=== PATIENT | female | born 2000 | race Caucasian/White ===

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

== ENCOUNTER 2022-03-21 22:03 | Inpatient (IN) | payer OTHER, SELFPAY ==
[2022-03-21 22:05] VITALS: BP 132/83; PULSE 65; RESP 16; TEMP 36.2; O2SAT 98; BMI 25.9
--- NOTE | 2022-03-21 22:41 | CT_ITS ---
INDICATION: throat pain -- right peritonsillar abscess? EXAMINATION: CT NECK WITH CONTRAST - CT Soft Tissue Neck W/ Contrast Injection TECHNIQUE: Helically acquired images were obtained of the neck following IV contrast. A radiation dose optimization technique was used for this scan. IV Contrast dosage and agent: 75 cc [id number] COMPARISON: None. FINDINGS: NASOPHARYNX: Unremarkable. SUPRAHYOID NECK: Enlargement of the right palatine tonsil with peripherally enhancing low-attenuation collection lateral to the tonsil measuring 3.1 x 2.9 x 2.9 cm. INFRAHYOID NECK: Unremarkable larynx, hypopharynx, and supraglottis. THYROID: No focal lesions. SALIVARY GLANDS: Unremarkable. LYMPH NODES: Shotty right-sided submandibular, anterior and posterior cervical lymph nodes. VASCULAR STRUCTURES: Unremarkable. VISUALIZED PORTIONS OF THE ORBITS, PARANASAL SINUSES, MASTOID AIR CELLS AND SKULL BASE: Unremarkable. BONES: Unremarkable. THORACIC INLET: Clear lung apices. CT/Soft Tissue Neck WITH Contrast IMPRESSION: Right peritonsillar abscess measuring up to 3.1 cm. Electronically Signed: Greg Magana MD at 0:26 EST ,
--- NOTE | 2022-03-21 22:55 | EDS_ITS ---
HPI History of Present Illness Chief Complaint: Sore Throat Informant: patient and parent Narrative Narrative: Presents here with mother for evaluation worsening throat symptoms. Mother talking due to patient discomfort with talking. A week ago developed slight sore throat symptoms. Was seen at urgent care 5 days ago clinically treated for strep was put on amoxicillin and 5-day course of steroids symptoms persisted was seen the following day had a monotest that was positive taken off antibiotics. Over the last 2 days symptoms have worsened. There is been no fevers. No history of strep. Previous no history of mono. Denies abdominal pain. Due to worsening symptoms not relieved with Tylenol ibuprofen was brought here. Patient has seen ENT Dr. Milligan in the past for nasal trauma with repair 10 years ago. Prior similar symptoms: No PFSH PFSH Medical History Anxiety Back pain Depression Hay fever Knee pain Migraines unusual tiredness Home Medications multivitamin 1 cap PO DAILY 02/23/19 [History Last Taken Unknown] escitalopram oxalate 10 mg tablet (Lexapro) 10 mg PO DAILY 03/21/22 [History Last Taken Unknown] levonorgestrel 17.5 mcg/24 hrs (5yrs) 19.5mg intrauterine device (Kyleena) 17.5 mcg intrauterine 03/22/22 [History Last Taken Unknown] Allergy/AdvReac Type Severity Reaction Status Date / Time amoxicillin trihydrate Allergy Hives Verified 03/21/22 22:04 [From Augmentin] latex Allergy Rash Verified 03/21/22 22:04 lidocaine Allergy Rash Verified 03/21/22 22:05 potassium clavulanate Allergy Hives Verified 03/21/22 22:04 [From Augmentin] Sulfa (Sulfonamide Allergy Unknown Verified 03/21/22 22:04 Antibiotics) Family History Other Afib CVA (cerebral vascular accident) Cancer Surgical History History of ankle surgery History of nasal surgery Social History Smoking Status: Never smoker alcohol intake: never ROS ROS ED Constitutional Constitutional ED: Denies chills, fever(s) or sweats Eyes Eyes: Denies change in vision ENT ENT ED: Reports dysphagia and sore throat Cardiovascular Cardiovascular: Denies chest pain, leg edema, palpitations or racing heartbeat Respiratory/Chest Respiratory/Chest: Denies cough, dyspnea or dyspnea on exertion Gastrointestinal Gastrointestinal: Denies abdominal pain, diarrhea, nausea or vomiting Genitourinary Genitourinary ED: Denies dysuria, hematuria or urinary frequency Musculoskeletal Musculoskeletal: Denies back pain, extremity pain or neck pain Integumentary Denies rash or wounds Neurologic Neurologic: Denies headache(s), paresthesias or weakness EXAM Physical Exam Const Vital Signs: 03/21/22 22:05 Temperature 97.1 F L Temperature Source Temporal Pulse Rate 65 Respiratory Rate 16 Blood Pressure 132/83 H Blood Pressure Mean 99 Pulse Ox 98 Oxygen Delivery Method Room Air Positive well nourished and well developed Constitutional Narrative: Patient with low voice while trying to speak due to discomfort. General Appearance ED: well developed HEENT HEENT Narrative: Posterior pharyngeal erythema there is increasing fullness right peritonsillar with exudates. Uvula slightly deviated to the left. Pain with jaw opening. No submental edema. No sublingual edema. normocephalic and atraumatic Eyes PERRL, EOMs intact bilaterally and conjunctivae normal General Eye ED: Yes normal appearance of both eyes Neck supple Neck Narrative: Right cervical lymphadenopathy. Skin General: Negative for tenderness Chest Wall Chest: Negative for tenderness Resp normal respiratory effort and normal air movement Effort and Inspection: symmetric chest movement; Negative for respiratory distress Cardio regular rate, regular rhythm and no murmurs Peripheral Pulses: pulses 2+ throughout GI normal to inspection, nondistended, normoactive bowel sounds and non-tender Palpation: Negative for guarding or rebound tenderness present Back/Spine no CVA tenderness and no thoracic nor lumbar tenderness Extremity normal to inspection General Extremety ED: Negative for edema or tenderness General Extremity: Negative for edema Neuro oriented x3 and no sensory deficits noted Sensorium / Orientation: awake and alert Skin no rashes or lesions noted and no wounds MDM MDM MDM Narrative Medical decision making narrative: Patient clinically with right peritonsillar abscess. Rapid strep obtained inconclusive with culture pending. She was covered with clindamycin additional dexamethasone along with IV morphine for symptom control. Labs White count returned at 12. Potassium at 3.1. Soft tissue CT neck per radiology a right peritonsillar abscess measuring 3.1 cm. She required additional morphine for pain control. I spoke with her ENT physician Dr. Viktor Milligan, will admit for symptom control and IV antibiotics he will take to the OR tomorrow. She will be kept NPO. Normal saline at 100 mL/h started. Patient and mother updated. Spoke with hospitalist, Dr. Mason for admission. Lab Data Attestation: I reviewed the patient's lab results. Labs: Laboratory Results - last 24 hr 03/21/22 03/21/22 03/21/22 22:41 23:20 23:20 WBC 12.0 H RBC 4.53 Hgb 13.6 Hct 41.6 MCV 91.8 MCH 30.0 MCHC 32.7 RDW Std Deviation 40.9 RDW Coeff of Miley 12.2 Plt Count 300 MPV 8.9 Immature Gran % (Auto) 1.200 H Neut % (Auto) 51.4 Lymph % (Auto) 36.8 [place] % (Auto) 9.5 Eos % (Auto) 0.4 Baso % (Auto) 0.7 Absolute Neuts (auto) 6.2 Absolute Lymphs (auto) 4.42 Nucleated RBC % 0 Atypical Lymphocytes 1+ PT 14.3 INR 1.1 APTT 28.9 Sodium Potassium Chloride Carbon Dioxide Anion Gap BUN Creatinine Estim Creat Clear Calc Est GFR (MDRD) Af Amer Est GFR (MDRD) Non-Af BUN/Creatinine Ratio Glucose Calcium Urine Test Negative 03/21/22 23:20 WBC RBC Hgb Hct MCV MCH MCHC RDW Std Deviation RDW Coeff of Miley Plt Count MPV Immature Gran % (Auto) Neut % (Auto) Lymph % (Auto) [place] % (Auto) Eos % (Auto) Baso % (Auto) Absolute Neuts (auto) Absolute Lymphs (auto) Nucleated RBC % Atypical Lymphocytes PT INR APTT Sodium 140 Potassium 3.1 L Chloride 104 Carbon Dioxide 31.0 Anion Gap 5 BUN 7 Creatinine 0.82 Estim Creat Clear Calc 111.32 Est GFR (MDRD) Af Amer 115 Est GFR (MDRD) Non-Af 95 BUN/Creatinine Ratio 8.6 L Glucose 105 Calcium 9.6 Urine Test Radiography Diagnostic Testing: Clinical Impression(s) from Imaging Studies Soft Tissue Neck CT 03/21/22 22:41 IMPRESSION: Right peritonsillar abscess measuring up to 3.1 cm. Electronically Signed: Greg Magana MD at 0:26 EST , Discharge Plan Dx/Rx/DC Orders Clinical Impression: Peritonsillar abscess, Throat pain, Leukocytosis Disposition Disposition: Acute Care Hospital [facility] Discharge Date/Time: 03/22/22 01:32
[2022-03-21 22:59] LABS: Internal QC Validated? YES +Cl - CLEAR BKGD; Pregnancy, Urine Negative Negative
[2022-03-21] MEDS: Morphine 2 MG/ML Syringe IV (23:14)
[2022-03-21] MEDS: dexAMETHasone 10 MG/ML Vial IV (23:14)
[2022-03-21 23:39] LABS: International Normalized Ratio 1.1; Prothrombin Time (Protime)PT. 14.3 SECONDS (11.7-14.9)
[2022-03-21 23:40] LABS: Partial Thromboplast Time 28.9 Seconds (24.1-36.2)
[2022-03-21 23:41] LABS: Absolute Lymphocyte Count 4.42 X10^3/uL (0.83-4.51); Absolute Neutrophil Count 6.2 X10^3/uL (2.0-7.7); Basophil# 0.08 X10^3/uL; Basophil% 0.7 % (0-1); Eosinophil# 0.05 X10^3/uL; Eosinophils% 0.4 % (0-5); Hematocrit 41.6 % (37-47); Hemoglobin 13.6 g/dL (12.0-15.0); Lymphocyte # 4.42 X10^3/ul (0.83-4.51); Lymphocyte % 36.8 % (19-41); Mean Corp Hgb Conc 32.7 g/dL (32-36); Mean Corpuscular Volume 91.8 fL (81-99); Mean Platelet Vol. 8.9 fl (6.2-12.0); Monocyte# 1.14 X10^3/uL; Monocyte% 9.5 % (0-10); NRBC Flagged by Analyzer 0 % (0-5); Neutrophil # 6.18 X10^3/uL (2.7-7.7); Neutrophil % 51.4 % (47-70); POSITIVE MORPHOLOGY YES; Platelet Count 300 K/mm3 (150-450); RBC Distribution Width CV 12.2 % (11.6-14.6); RBC Distribution Width SD 40.9 fl (35.1-43.9); Red Blood Count 4.53 M/mm3 (4.2-5.4)
[2022-03-21 23:44] LABS: Differential Indicated SCAN CRITERIA MET
[2022-03-21 23:47] LABS: Anion Gap 5 (5-15); BUN 7 mg/dL (7-18); BUN/Creat Ratio 8.6 RATIO (10-20); Calcium,Total 9.6 mg/dL (8.5-10.1); Chloride 104 mmol/L (98-107); Creatinine, Serum 0.82 mg/dL (0.55-1.02); EST Glomerular Filtration Rate 95 mL/min (>60); Est Glom Filt Rate - Afr Amer 115 mL/min (>60); Estimated Creatinine Clearance 111.32 ml/min; Glucose 105 mg/dL (74-106); Potassium 3.1 mmol/L (3.5-5.1); Sodium Level 140 mmol/L (136-145)
[2022-03-22] VITALS (14 sets, daily range): BP systolic 96–128; BP diastolic 59–89; PULSE 55–91; RESP 15–18; TEMP 36.4–37.1; O2SAT 95–100; BMI 25.7
[2022-03-22 00:02] LABS: Atypical Lymphocyte 1+ %
[2022-03-22] MEDS: Clindamycin 600 MG/50 ML BAG 100 MG IV ×4 (00:05→18:35)
[2022-03-22] MEDS: Morphine 4 MG/ML Syringe IV (00:41)
[2022-03-22] MEDS: 0.9% Normal Saline 1,000 ML 100 ML IV (00:58)
--- NOTE | 2022-03-22 01:08 | PCM.HP.STD ---
HPI - General General Date of Admission: 03/22/22 Date of Service: 03/22/22 Chief Complaint: sore throat HPI Narrative RAH MANZANARES, is a 21 F with a significant history of depression/anxiety who presents emergency department with 1 week history of progressively worsening sore throats. Patient went to the urgent care about 5 days prior to presentation and was given amoxicillin and steroids. About 3 days prior to presentation she went back to the urgent care and because mononucleosis test came back to be positive antibiotics were stopped. Because of pain she is unable to talk or swallow. CT scan showed a peritonsillar abscess. Emergency department discussed the case with ENT who recommended outpatient drainage. However because patient wanted to be out before such a procedure is done the plan is to make patient stay at hospital for drainage under anesthesia. [facility] Medical History Anxiety Back pain Depression Hay fever Knee pain Migraines unusual tiredness Home Medications multivitamin 1 cap PO DAILY 02/23/19 [History Last Taken Unknown] escitalopram oxalate 10 mg tablet (Lexapro) 10 mg PO DAILY 03/21/22 [History Last Taken Unknown] levonorgestrel 17.5 mcg/24 hrs (5yrs) 19.5mg intrauterine device (Kyleena) 17.5 mcg intrauterine 03/22/22 [History Last Taken Unknown] Allergy/AdvReac Type Severity Reaction Status Date / Time amoxicillin trihydrate Allergy Hives Verified 03/21/22 22:04 [From Augmentin] latex Allergy Rash Verified 03/21/22 22:04 lidocaine Allergy Rash Verified 03/21/22 22:05 potassium clavulanate Allergy Hives Verified 03/21/22 22:04 [From Augmentin] Sulfa (Sulfonamide Allergy Unknown Verified 03/21/22 22:04 Antibiotics) Family History Other Afib CVA (cerebral vascular accident) Cancer Surgical History History of ankle surgery History of nasal surgery Social History Smoking Status: Never smoker alcohol intake: never ROS ROS Narrative Pertinent positives and pertinent negatives as noted in HPI. All other systems were reviewed and are negative Vital Signs Vital Signs Vital Signs: 03/21/22 22:05 Temperature 97.1 F L Temperature Source Temporal Pulse Rate 65 Respiratory Rate 16 Blood Pressure 132/83 H Blood Pressure Mean 99 Pulse Ox 98 Oxygen Delivery Method Room Air Weight Weight: 77.564 kg Body Mass Index (BMI) 25.9 Physical Exam Narrative Physical exam: General: Well-nourished, well-developed. Head: Normocephalic, atraumatic, no tenderness Eyes: Vision is grossly intact. EOMI ENT: Unable to fully open her mouth secondary to pain. Swelling at uvula area. Neck: Nontender, full range of motion, no spinal tenderness, deformities, step-off CVS: Regular rate and rhythm. S1-S2 present. No murmur, gallop or rub. Respiratory : clear to auscultation bilaterally, chest wall nontender, no wheezing Abdomen: Soft, nontender, nondistended, normal bowel sounds, no masses : Deferred Back: Nontender, no CVA tenderness, no midline spinal tenderness, deformities, step-offs Extremities: Nontender full range of motion, no trauma Skin: Normal color, no trauma, abrasions Neuro: Alert, oriented, cranial nerves II through XII grossly intact. Psychiatry: Normal mood. Normal affect. Not depressed. Not anxious. Results Lab / Micro Data Result Diagrams: 03/21/22 23:20 03/21/22 23:20 Labs: Laboratory Results - last 24 hr 03/21/22 22:41: Urine Test Negative 03/21/22 23:20: WBC 12.0 H, RBC 4.53, Hgb 13.6, Hct 41.6, MCV 91.8, MCH 30.0, MCHC 32.7, RDW Std Deviation 40.9, RDW Coeff of Miley 12.2, Plt Count 300, MPV 8.9, Immature Gran % (Auto) 1.200 H, Neut % (Auto) 51.4, Lymph % (Auto) 36.8, [place] % (Auto) 9.5, Eos % (Auto) 0.4, Baso % (Auto) 0.7, Absolute Neuts (auto) 6.2, Absolute Lymphs (auto) 4.42, Nucleated RBC % 0, Atypical Lymphocytes 1+ 03/21/22 23:20: PT 14.3, INR 1.1, APTT 28.9 03/21/22 23:20: Sodium 140, Potassium 3.1 L, Chloride 104, Carbon Dioxide 31.0, Anion Gap 5, BUN 7, Creatinine 0.82, Estim Creat Clear Calc 111.32, Est GFR (MDRD) Af Amer 115, Est GFR (MDRD) Non-Af 95, BUN/Creatinine Ratio 8.6 L, Glucose 105, Calcium 9.6 Micro: Microbiology 03/21/22 23:20 Interface Orders Group A Streptococcus Rapid Screen - Preliminary Radiology Impression Soft Tissue Neck CT 03/21/22 22:41 IMPRESSION: Right peritonsillar abscess measuring up to 3.1 cm. Electronically Signed: Greg Magana MD at 0:26 EST , Assessment & Plan Assessment/Plan (1) Peritonsillar abscess: PLAN: Plan Peritonsillar abscess Soft tissue neck CT was visualized and independently interpreted. I agree with radiologist interpretation of peritonsillar abscess. Per radiologist abscess measures up to 3.1 cm. White count of 12.0 (patient recently has been on steroids; so steroids could be contributing); bandemia of 1.2%. Rapid strep A screen inconclusive. Confirmatory culture is pending. Clindamycin IV ordered emergency department and continued Steroids IV ordered We will keep patient n.p.o. Received morphine IV at emergency department. Patient had no relief from it. Dilaudid was offered but reportedly patient has nausea with Dilaudid. Per family request Toradol as needed ordered. ENT consult for possible drainage. Hypokalemia Potassium level of 3.1 on presentation. IV fluids with potassium Trend BMP. DVT prophylaxis Low risk. Encourage to ambulate. Charges/Coding Visit Charges Inpatient E&M: 93617 Init Hosp L3
--- NOTE | 2022-03-22 02:17 | NURSING ---
Pt C/O mouth/throat pain 11/29, states morphine has not helped. Cortext to Dr Mason regarding same & new order received.
[2022-03-22] MEDS: KCL 40mEq in 0.9% NS 40 MEQ/1,000 ML IV.SOLN 100 MEQ IV ×3 (02:26→22:26)
[2022-03-22] MEDS: Ketorolac 15 MG/ML Vial IV ×2 (03:14→10:23)
[2022-03-22 04:56] LABS: Absolute Lymphocyte Count 2.02 X10^3/uL (0.83-4.51); Absolute Neutrophil Count 9.2 X10^3/uL (2.0-7.7); Basophil# 0.03 X10^3/uL; Basophil% 0.3 % (0-1); Hematocrit 39.3 % (37-47); Hemoglobin 12.9 g/dL (12.0-15.0); Lymphocyte # 2.02 X10^3/ul (0.83-4.51); Lymphocyte % 17.1 % (19-41); Mean Corp Hgb Conc 32.8 g/dL (32-36); Mean Corpuscular Volume 91.4 fL (81-99); Mean Platelet Vol. 8.9 fl (6.2-12.0); Monocyte# 0.45 X10^3/uL; Monocyte% 3.8 % (0-10); NRBC Flagged by Analyzer 0 % (0-5); Neutrophil # 9.23 X10^3/uL (2.7-7.7); Neutrophil % 78.4 % (47-70); Platelet Count 294 K/mm3 (150-450); RBC Distribution Width CV 12.3 % (11.6-14.6); RBC Distribution Width SD 41.2 fl (35.1-43.9); White Blood Count 11.8 K/mm3 (4.4-11.0)
[2022-03-22] MEDS: dexAMETHasone 4 MG/ML Vial IV ×3 (05:07→22:22)
[2022-03-22 05:20] LABS: Anion Gap 6 (5-15); BUN 7 mg/dL (7-18); BUN/Creat Ratio 10.3 RATIO (10-20); Calcium,Total 8.3 mg/dL (8.5-10.1); Chloride 105 mmol/L (98-107); Creatinine, Serum 0.68 mg/dL (0.55-1.02); EST Glomerular Filtration Rate 117 mL/min (>60); Est Glom Filt Rate - Afr Amer 142 mL/min (>60); Estimated Creatinine Clearance 134.23 ml/min; Glucose 158 mg/dL (74-106); Potassium 4.3 mmol/L (3.5-5.1); Sodium Level 137 mmol/L (136-145)
[2022-03-22] MEDS: Ondansetron 4 MG/2 ML Vial IV ×2 (05:55→15:01)
[2022-03-22] MEDS: HYDROmorphone 0.5 MG/0.5 ML SYRINGE IV ×4 (05:55→15:01)
--- NOTE | 2022-03-22 08:01 | PCM.PN.BLA ---
Progress Note [facility] Medical Records Department [address] [place] [address] H&P Exam - Hospitalist Acct: [id number] Name: RAH MANZANARES Rep #: [id number] :? 2000 21 HPI - General General Date of Admission: 03/22/22 Date of Service: 03/22/22 Chief Complaint: sore throat HPI Narrative RAH MANZANARES, is a 21 F with 1 week history of progressively worsening sore throat.? Patient went to the urgent care about 5 days prior to presentation and was given amoxicillin and steroids.? About 3 days prior to presentation she went back to the urgent care and because mononucleosis? test came back to be positive? antibiotics were stopped. Because of pain she is unable to talk or swallow. CT scan showed a peritonsillar abscess.? Emergency department discussed the case with ENT who recommended outpatient drainage.? However the paitent requested general anesthesia and she was admitted. ? [facility] Medical History? Anxiety Back pain Depression Hay fever Knee pain Migraines unusual tiredness Home Medications multivitamin 1 cap PO DAILY 02/23/19 [History Last Taken Unknown] escitalopram oxalate 10 mg tablet (Lexapro) 10 mg PO DAILY 03/21/22 [History Last Taken Unknown] levonorgestrel 17.5 mcg/24 hrs (5yrs) 19.5mg intrauterine device (Kyleena) 17.5 mcg intrauterine 03/22/22 [History Last Taken Unknown] Allergy/AdvReac Type Severity Reaction Status Date / Time amoxicillin trihydrate Allergy ? Hives Verified 03/21/22 22:04 [From Augmentin] ? latex Allergy ? Rash Verified 03/21/22 22:04 lidocaine Allergy ? Rash Verified 03/21/22 22:05 potassium clavulanate Allergy ? Hives Verified 03/21/22 22:04 [From Augmentin] ? Sulfa (Sulfonamide Allergy ? Unknown Verified 03/21/22 22:04 Antibiotics) ? Family History? Other Afib CVA (cerebral vascular accident) Cancer Surgical History? History of ankle surgery History of nasal surgery Social History? Smoking Status:? Never smoker alcohol intake:? never ROS Negative PE: The patient is awake alert in no acute distress. There is no stridor or stertor. Mouth and oropharynx reveals 2 and half centimeter trismus. She has uvular deviation to the left. There is obvious fullness and fluctuation in the right peritonsillar area. Neck is supple no adenopathy. CT scan of the neck reveals a 3.1 cm right peritonsillar abscess Assessment right peritonsillar abscess acute tonsillitis Plan: She will continue her n.p.o. status and IV fluids and IV antibiotics. We will take her to the operating room today for incision and drainage of right peritonsillar abscess. All risk benefits alternatives were discussed with the patient, she agreed to the procedure and wishes to proceed.
[2022-03-22] MEDS: Escitalopram Oxalate 10 MG Tablet PO (10:35)
--- NOTE | 2022-03-22 11:05 | CASEMGMT ---
DICK SERRANO Assessment: Face to Face with pt for initial transition planning/care coordination assessment. RN MAGGIE introduced self and role at [facility], pt voices understanding and consents to assessment. Pt is A/O x4 and answers all questions appropriately at this time. Pt lying in bed with parents at bedside. Care providers, pharmacy, and demographics verified/updated. 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 Pt home is a two story house with 1 step to enter. Pt reports she is I in ADL's and denies concerns at home. Transportation: Pt drives self and denies concerns with transportation. DME/HHC/SNF: Pt denies having any DME in the home, previous HHC or SNF stays. Pt states no concerns with going home at time of dc. Pt states no further concerns/needs. CM to follow. Advised pt to ask CM if any further question/concerns/needs arise, voices understanding. Pt Goal: Home Plan: Home
--- NOTE | 2022-03-22 14:18 | PCM.PN.HOSP ---
Subjective Subjective Patient was seen and examined today, her mother was in the room at the time of my examination. She is due to go down for surgery by ENT today for her peritonsillar abscess. Objective Data Objective Data Vital Signs: Vital Signs Temp Pulse Resp BP Pulse Ox O2 Del Method 97.8 F 60 18 97/60 99 Room Air 03/22/22 13:58 03/22/22 13:58 03/22/22 13:58 03/22/22 13:58 03/22/22 13:58 03/22/22 13:58 Oxygen Delivery Method Room Air Weight: 76.8 kg Body Mass Index (BMI) 25.7 Intake & Output: Intake and Output for Last 24 Hours 03/20/22 03/21/22 03/22/22 23:59 23:59 23:59 Intake Total Balance Lab / Micro Data Result Diagrams: 03/22/22 04:20 03/22/22 04:20 Labs: Laboratory Results - last 24 hr 03/21/22 22:41: Urine Test Negative 03/21/22 23:20: WBC 12.0 H, RBC 4.53, Hgb 13.6, Hct 41.6, MCV 91.8, MCH 30.0, MCHC 32.7, RDW Std Deviation 40.9, RDW Coeff of Miley 12.2, Plt Count 300, MPV 8.9, Immature Gran % (Auto) 1.200 H, Neut % (Auto) 51.4, Lymph % (Auto) 36.8, Gray % (Auto) 9.5, Eos % (Auto) 0.4, Baso % (Auto) 0.7, Absolute Neuts (auto) 6.2, Absolute Lymphs (auto) 4.42, Nucleated RBC % 0, Atypical Lymphocytes 1+ 03/21/22 23:20: PT 14.3, INR 1.1, APTT 28.9 03/21/22 23:20: Sodium 140, Potassium 3.1 L, Chloride 104, Carbon Dioxide 31.0, Anion Gap 5, BUN 7, Creatinine 0.82, Estim Creat Clear Calc 111.32, Est GFR (MDRD) Af Amer 115, Est GFR (MDRD) Non-Af 95, BUN/Creatinine Ratio 8.6 L, Glucose 105, Calcium 9.6 03/22/22 04:20: WBC 11.8 H, RBC 4.30, Hgb 12.9, Hct 39.3, MCV 91.4, MCH 30.0, MCHC 32.8, RDW Std Deviation 41.2, RDW Coeff of Miley 12.3, Plt Count 294, MPV 8.9, Immature Gran % (Auto) 0.400, Neut % (Auto) 78.4 H, Lymph % (Auto) 17.1 L, Gray % (Auto) 3.8, Eos % (Auto) 0.0, Baso % (Auto) 0.3, Absolute Neuts (auto) 9.2 H, Absolute Lymphs (auto) 2.02, Nucleated RBC % 0 03/22/22 04:20: Sodium 137, Potassium 4.3, Chloride 105, Carbon Dioxide 26.0, Anion Gap 6, BUN 7, Creatinine 0.68, Estim Creat Clear Calc 134.23, Est GFR (MDRD) Af Amer 142, Est GFR (MDRD) Non-Af 117, BUN/Creatinine Ratio 10.3, Glucose 158 H, Calcium 8.3 L Micro: Microbiology 03/21/22 23:20 Interface Orders Group A Streptococcus Rapid Screen - Preliminary Radiography Diagnostic Testing: Radiology Impression Soft Tissue Neck CT 03/21/22 22:41 IMPRESSION: Right peritonsillar abscess measuring up to 3.1 cm. Electronically Signed: Greg Magana MD at 0:26 EST Reading Location ID and State: [facility] / [place] Tel , Service support , Physical Exam Const alert, oriented x3, no apparent distress and healthy appearing General Appearance: cooperative, well kempt and well developed Orientation / Consciousness: awake, oriented to person, oriented to place and oriented to time HEENT normocephalic and moist oral mucous membranes Eyes PERRL, EOMs intact bilaterally and conjunctivae normal Neck supple, no JVD and thyroid normal General: trachea midline Resp normal respiratory effort, no retractions, no use of accessory muscles and clear to auscultation bilaterally Auscultation: Negative for rales, rhonchi or wheezes Cardio regular rate, regular rhythm, S1 normal heart sound, S2 normal heart sound, no murmurs, no rub and no gallops GI normal to inspection, nondistended, normoactive bowel sounds, soft to palpation, non-tender and non-distended Extremity no clubbing, cyanosis or edema Skin no rashes or lesions noted General Skin Exam: no breakdown Neuro oriented x3, CN's II-XII intact bilaterally, no focal motor deficits and no sensory deficits noted Sensorium / Orientation: awake and alert Speech: speech normal Psych affect normal Assessment & Plan Assessment/Plan (1) Peritonsillar abscess: PLAN: Plan 1. Peritonsillar abscess-again patient will go to surgery by ENT today, continue present antibiotic coverage #2 chronic anxiety-patient is on Lexapro, this will be continued Charges/Coding Visit Charges Inpatient E&M: 78377 Subs Hosp L2
[2022-03-22] MEDS: HYDROmorphone 1 MG/ML Syringe 1.5 MG IV (15:20)
--- NOTE | 2022-03-22 15:31 | NURSING ---
@ approx 1500, pt to OR via bed w/ parents at her side
[2022-03-22] MEDS: Lactated Ringers 1,000 ML 15 ML IV (17:01)
--- NOTE | 2022-03-22 17:38 | PCM.OPRPT ---
Report of Operation Date of Procedure: 03/22/22 Pre-Operative Diagnosis: right peritonsillar abscess Post-Operative Diagnosis: same Surgery/Procedure Performed:: Incision and drainage right peritonsillar abscess Surgeon: Viktor Milligan Type of Anesthesia: General Anesthesiologist: Evin Chung Estimated Blood Loss (mL): minimal Description of Procedure: The patient was taken to the operating room on 03/22/2022. She was placed in the supine position on the operating table. She was given sufficient general endotracheal anesthesia. The table was turned 90 degrees in a clockwise fashion. A Erlin mouthgag was inserted in the patient's mouth. The patient was suspended on a Veronica stand. I made a 2.5 cm incision in the mucosa overlying the right peritonsillar abscess with a 12 blade. I then inserted a tonsil clamp into the abscess cavity. There was immediate extrusion of approximately 10 cc of pus. Cultures were taken. Next I irrigated the abscess cavity with 1 L of saline. All irrigant was suctioned from the oropharynx. Next I used some sparing cautery on the edges of the incision for absolute hemostasis. The gag was then closed. Is reopened to inspect for bleeding there was none. The gag was then removed patient was turned back to the regular anesthesia position and awoken. She was brought to the recovery room in stable condition. Blood loss minimal replacement none. sponge ,needle and instrument count correct at the end of the procedure.
[2022-03-23] VITALS: BP 109/70; PULSE 60; RESP 16; TEMP 36.6; O2SAT 98
[2022-03-23] MEDS: Clindamycin 600 MG/50 ML BAG 100 MG IV ×2 (00:27→05:38)
[2022-03-23 02:30] VITALS: BP 101/63; PULSE 50; RESP 16; TEMP 36.7; O2SAT 97
[2022-03-23] MEDS: Acetaminophen 160 MG/5 ML UDC 650 MG PO ×2 (02:43→10:29)
[2022-03-23 02:59] VITALS: BP 101/63; PULSE 50; RESP 16; TEMP 36.7; O2SAT 97
[2022-03-23] MEDS: Ketorolac 15 MG/ML Vial IV (05:32)
[2022-03-23] MEDS: dexAMETHasone 4 MG/ML Vial IV (05:37)
[2022-03-23 05:44] VITALS: BP 104/64; PULSE 48; RESP 18; TEMP 36.4; O2SAT 96
[2022-03-23 07:42] VITALS: O2SAT 98
[2022-03-23 09:07] VITALS: BP 104/66; PULSE 44; RESP 18; TEMP 36.7; O2SAT 97
--- NOTE | 2022-03-23 09:39 | DCINST_ITS ---
Discharge Instructions Diet Discharge Diet: No restrictions Activity Discharge Activity: Return to Normal Activity Weight Bearing Status: Full weight bearing Follow Up Care Test Results: Test results from this visit will be discussed in further detail at your follow- up appointment, if applicable. Discharge Plan Admission Admit Date/Time: 03/22/22 00:58 Primary Reason for Your Visit: right peritonsillar abcess Attending Provider: Rafi Lundberg Primary Care Provider: Rafi Giron Consulting Providers: Viktor Milligan ; Suhas Mason Discharge Orders/Prescriptions Prescriptions: New clindamycin HCl 300 mg capsule 300 mg PO Q6H Qty: 20 0RF Continued multivitamin capsule capsule 1 cap PO DAILY escitalopram oxalate [Lexapro] 10 mg Tablet 10 mg PO DAILY Kyleena 17.5 mcg/24 hrs (5 yrs) 19.5 mg Intrauterine Device 17.5 mcg INTRAUTERINE Referrals / Follow Up: Viktor Milligan MD [Med Staff - Active Staff] - See Referral Note (next week) Rafi Giron [Primary Care Provider] - See Referral Note (at your next appointment time) Disposition Disposition (needs filled in before D/C Order can be placed): Home, Self Care
--- NOTE | 2022-03-23 09:49 | PCM.DC.SUM ---
Providers Date of Admission: 03/22/22 Date of Discharge: 03/23/22 Primary Care Physician: Rafi Giron Consultations 03/22/22 01:45 Consult: ENT Routine Consulting Provider: Viktor Milligan Reason for Consult: Peritonsillar ABSCESS EMERGENT Consult: No MD Notified: Yes Date Notified: 03/22/22 Time Notified: 01:06 Method of Notification: ED Physician Initiated Method of Consult:: In-Person Reason For Visit: PERITONSILLAR ABSCESS Diagnosis Discharge Diagnosis (1) Peritonsillar abscess: Status: Acute Code(s): J36 - Peritonsillar abscess Plan 1. Peritonsillar abscess-again patient will go to surgery by ENT today, continue present antibiotic coverage #2 chronic anxiety-patient is on Lexapro, this will be continued Medications at Discharge Home Medications multivitamin 1 cap PO DAILY 02/23/19 escitalopram oxalate 10 mg tablet (Lexapro) 10 mg PO DAILY 03/21/22 levonorgestrel 17.5 mcg/24 hrs (5yrs) 19.5mg intrauterine device (Kyleena) 17.5 mcg intrauterine 03/22/22 clindamycin HCl 300 mg capsule 300 mg PO Q6H #20 caps 03/23/22 Hospital Course Operations - (Incision and drainage of right peritonsillar abscess) Procedures None Summary of Care Provided Minutes Spent on Discharge: 31 Hospital Course: This 21-year-old white female was seen in the emergency room at [facility] with complaints of throat discomfort with talking. Patient developed a sore throat approximately a week previously, she was seen at the urgent care center 5 days ago and treated for strep and put on amoxicillin and p.o. steroids, her symptoms persisted and they worsened however, she was seen again and had a monotest performed that was positive, she was then taken off antibiotics. Over the last 48 hours her symptoms have worsened, work-up in the emergency room included a CBC which showed an elevated white blood cell count, patient's potassium was low at 3.1, soft tissue CT of the neck showed a right peritonsillar abscess. Patient was admitted to [place] [id number], she was placed on IV antibiotics and seen in consultation by ENT, she was taken to surgery where drainage of a peritonsillar abscess was performed, there were no complications from surgery. On 03/23/2022, patient was seen and examined: On examination she appeared in good health and spirits, she does not appear to be in any distress. Vital signs as documented. Skin warm and dry and without overt rashes. Neck without JVD, thyroid appears normal, trachea is midline, neck is supple. Lungs clear, normal air movement was noted. Heart exam notable for regular rhythm, normal sounds and absence of murmurs, rubs or gallops. Abdomen unremarkable and without evidence of organomegaly, masses, or abdominal aortic enlargement, bowel sounds are present in all 4 quadrants, no abdominal tenderness was noted. Extremities nonedematous, no cyanosis was noted, no clubbing was noted. Neuro: Cranial nerves II through XII are grossly intact, no focal motor deficits were noted, sensation to light touch and pinprick is intact, motor exam 5/5 throughout. Psych: Patient is alert and oriented x3, she does not appear anxious or depressed, she does not appear agitated. Patient was felt to be stable for discharge home on 03/23/2022 Weight / BMI Weight Weight: 76.8 kg Body Mass Index (BMI) 25.7 ABG / Lab / Microbiology Data Result Diagrams: 03/22/22 04:20 03/22/22 04:20 Microbiology: Microbiology 03/21/22 23:20 Interface Orders Group A Streptococcus Rapid Screen - Preliminary D/C Instructions Discharge Diet: No restrictions Weight Bearing Status: Full weight bearing Meaningful Use Info Meaningful Use Diagnoses (Choose all that apply): None applicable Discharge Plan Admission Admit Date/Time: 03/22/22 00:58 Primary Reason for Your Visit: right peritonsillar abcess Attending Provider: Rafi Lundberg Primary Care Provider: Rafi Giron Consulting Providers: Viktor Milligan ; Suhas Mason Discharge Orders/Prescriptions Prescriptions: New clindamycin HCl 300 mg capsule 300 mg PO Q6H Qty: 20 0RF Continued multivitamin capsule capsule 1 cap PO DAILY escitalopram oxalate [Lexapro] 10 mg Tablet 10 mg PO DAILY Kyleena 17.5 mcg/24 hrs (5 yrs) 19.5 mg Intrauterine Device 17.5 mcg INTRAUTERINE Referrals / Follow Up: Viktor Milligan MD [Med Staff - Active Staff] - See Referral Note (next week) Rafi Giron [Primary Care Provider] - See Referral Note (at your next appointment time) Disposition Disposition (needs filled in before D/C Order can be placed): Home, Self Care Charges/Coding Visit Charges Inpatient E&M: 61583 Disch Hosp
[2022-03-23] MEDS: Escitalopram Oxalate 10 MG Tablet PO (10:33)
== END 2022-03-23 10:48 | disposition home or self-care (01) | DRG 145 ==
LOC: ED 22:45 → MS3 03-22 03:50
PROVIDERS: Otolaryngology; Admitting Provider Hospitalist; Emergency Provider Emergency Medicine; PCP Family Medicine; Visit Provider Internal Medicine
PROC: 0C9PXZZ Drainage of Tonsils, External Approach (ICD-10-PCS; CPT 42700; principal; 2022-03-22 16:25)
DX: J36 Peritonsillar abscess (principal); D72.825 Bandemia; E87.6 Hypokalemia; F41.9 Anxiety disorder, unspecified
CPT/HCPCS: 36415; 70491; 80048; 81025; 85025; 85610; 85730; 87070; 87075; 87077; 87205; 87880; 99285; J7030; J7120; Q9967; A4216; J2405

== ENCOUNTER → 2023-04-08 | Outpatient (CLI) | payer OTHER, SELFPAY ==
[2023-04-08 10:39] LABS: Free T3 2.6 pg/mL (2.18-3.98); T4 Free Direct 1.05 ng/dL (0.76-1.46); T4 Total, Thyroxin 7.7 ug/dL (4.8-13.9); Thyroid Stim Hormone (TSH) 3.52 uIU/mL (0.358-3.74)
[2023-04-20 01:07] LABS: Anti-Thyroglobulin AB 1.9 IU/mL (0.0-0.9); Endomysial Antibody IgA Negative (Negative); Immunoglobulin A 94 mg/dL (87-352); Thyroglobulin RIA < 2.0 ng/mL (.); Thyroid Peroxidase AB 25 IU/mL (0-34); Thyroxin Bind Glob (TBG) 30 ug/mL (13-39); t-Transglutaminase IgA <2 U/mL (0-3)
== END | disposition home or self-care (01) ==
LOC: LAB 07:15
PROVIDERS: PCP Family Medicine; Referring Provider Family Medicine; Visit Provider Family Medicine
DX: E03.9 Hypothyroidism, unspecified (principal); E53.8 Deficiency of other specified B group vitamins
CPT/HCPCS: 36415; 82784; 83516; 84432; 84436; 84439; 84442; 84443; 84481; 86255; 86376; 86800

== ENCOUNTER → 2023-08-23 | Outpatient (CLI) | payer OTHER, SELFPAY ==
[2023-08-23 15:25] LABS: Absolute Lymphocyte Count 1.57 X10^3/uL (0.83-4.51); Absolute Neutrophil Count 1.7 X10^3/uL (2.0-7.7); Basophil# 0.04 X10^3/uL; Basophil% 1.1 % (0-1); Eosinophil# 0.04 X10^3/uL; Eosinophils% 1.1 % (0-5); Hematocrit 41.3 % (37-47); Hemoglobin 13.8 g/dL (12.0-15.0); Lymphocyte # 1.57 X10^3/ul (0.83-4.51); Lymphocyte % 44.1 % (19-41); Mean Corp Hgb Conc 33.4 g/dL (32-36); Mean Corpuscular Hgb 30.5 pg (27.0-32.0); Mean Corpuscular Volume 91.2 fL (81-99); Mean Platelet Vol. 9.4 fl (6.2-12.0); Monocyte% 5.6 % (0-10); NRBC Flagged by Analyzer 0 % (0-5); Neutrophil # 1.71 X10^3/uL (2.7-7.7); Neutrophil % 48.1 % (47-70); Platelet Count 275 K/mm3 (150-450); RBC Distribution Width CV 12.1 % (11.6-14.6); RBC Distribution Width SD 40.3 fl (35.1-43.9); Red Blood Count 4.53 M/mm3 (4.2-5.4); White Blood Count 3.6 K/mm3 (4.4-11.0)
[2023-08-23 15:44] LABS: ALB/GLOB Ratio 1.2 RATIO (0.9-2.4); AST(SGOT) 20 U/L (15-37); Alanine Aminotransfer ALT/SGPT 22 U/L (13-56); Alkaline Phosphatase 68 U/L (45-117); Anion Gap 5 (5-15); BUN 10 mg/dL (7-18); BUN/Creat Ratio 10.8 RATIO (10-20); Calcium,Total 9.1 mg/dL (8.5-10.1); Chloride 105 mmol/L (98-107); Creatinine, Serum 0.93 mg/dL (0.55-1.02); EST Glomerular Filtration Rate 81 mL/min (>60); Est Glom Filt Rate - Afr Amer 98 mL/min (>60); Estradiol 63.9 pg/mL; Ferritin 22 ng/mL (8-252); Free T3 3.2 pg/mL (2.18-3.98); Globulin 3.3 g/dL (2.2-4.2); Glucose 91 mg/dL (74-106); Iron 119 ug/dL (50-170); Potassium 4.4 mmol/L (3.5-5.1); Protein, Total 7.3 g/dL (6.4-8.2); Sodium Level 137 mmol/L (136-145); T4 Free Direct 0.91 ng/dL (0.76-1.46); Thyroid Stim Hormone (TSH) 0.72 uIU/mL (0.358-3.74)
[2023-08-23 15:47] LABS: Vitamin B12 349 pg/mL (211-911); Vitamin D,25 Hydroxy 44.3 ng/mL
== END | disposition home or self-care (01) ==
LOC: BFHLAB 11:39
PROVIDERS: PCP Family Medicine; Visit Provider Family Medicine
DX: R53.83 Other fatigue (principal); D64.9 Anemia, unspecified; E28.2 Polycystic ovarian syndrome; N92.0 Excessive and frequent menstruation with regular cycle; E06.3 Autoimmune thyroiditis
CPT/HCPCS: 36415; 80053; 82306; 82607; 82627; 82670; 82728; 83525; 83540; 84403; 84439; 84443; 84481; 85025; 82626

== ENCOUNTER → 2024-11-24 | Outpatient (CLI) | payer BC, SELFPAY ==
[2024-11-24 19:06] LABS: Free T3 3.3 pg/mL (2.18-3.98)
== END | disposition home or self-care (01) ==
LOC: BFHLAB 15:09
PROVIDERS: PCP Family Medicine; Visit Provider Family Medicine
DX: E06.3 Autoimmune thyroiditis (principal)
CPT/HCPCS: 36415; 84439; 84443; 84481